=== PATIENT | female | born 1955 | race Caucasian/White ===

== ENCOUNTER → 2025-01-01 | Outpatient (CLI) | payer MEDICARE, MEDICAID, SELFPAY ==
--- NOTE | 2025-01-01 13:52 | XR_ITS ---
Examination: Lumbar spine, 5 views Technique: Lumbar spine AP, lateral, coned lateral lower lumbar spine, bilateral obliques 5 views Exam date and time: January 01, 2025 1417 hrs. Indications: Low back pain beginning one year ago. Findings: Grade 1 anterolisthesis L3 on L4, L4 on L5 Mild to moderate lumbar disc narrowing No lumbar fracture No lumbar spondylosis Impression: [id number] lumbar degenerative disc disease
== END | disposition home or self-care (01) ==
LOC: CDIM 13:42
PROVIDERS: PCP Nurse Practitioner Family; Referring Provider Chiropractor; Visit Provider Chiropractor
DX: M51.369 Other intervertebral disc degeneration, lumbar region without mention of lumbar back pain or lower extremity pain (principal)
CPT/HCPCS: 72110

== ENCOUNTER → 2025-01-12 | Outpatient (CLI) | payer MEDICARE, MEDICAID, SELFPAY ==
--- NOTE | 2025-01-12 | XR_ITS ---
Examination: Lumbar spine 3 views AP, standing lateral flexion standing lateral extension total 3 views Exam date and time: January 12, 2025 1159 hours INDICATIONS: Low back pain several years. FINDINGS: Grade 1 anterolisthesis L3 on L4, 9.7 mm in flexion and 7 mm in extension No lumbar fracture No cortical bone destruction Diffuse [id number] lumbar disc narrowing most prominent at the lower 3 lumbar levels IMPRESSION: Grade 1 anterolisthesis L3 on L4, 9.7 mm in flexion and 7 mm in extension Degenerative disc disease as above
== END | disposition home or self-care (01) ==
PROVIDERS: PCP Chiropractor; Referring Provider Chiropractor; Visit Provider Chiropractor
DX: M51.369 Other intervertebral disc degeneration, lumbar region without mention of lumbar back pain or lower extremity pain (principal)
CPT/HCPCS: 72120

== ENCOUNTER → 2025-05-14 | Outpatient (CLI) | payer MEDICARE, MEDICAID, SELFPAY ==
--- NOTE | 2025-05-14 14:37 | XR_ITS ---
Examination: Lumbar spine, 5 views Technique: Lumbar spine AP, lateral, coned lateral lower lumbar spine, bilateral obliques 5 views Exam date and time: May 14, 2000 2516 3 9 hours INDICATIONS: Low back pain beginning one week. FINDINGS: Grade 1 anterolisthesis L3 on L4 7 mm and L4 on L5 5 mm Diffuse mild to moderate lumbar disc narrowing No lumbar fracture Moderate lumbar spondylosis IMPRESSION: Diffuse [id number] lumbar degenerative disc disease
== END | disposition home or self-care (01) ==
LOC: CDIM 13:56
PROVIDERS: PCP Nurse Practitioner Family; Referring Provider Chiropractor; Visit Provider Chiropractor
DX: M51.360 Other intervertebral disc degeneration, lumbar region with discogenic back pain only (principal)
CPT/HCPCS: 72110

== ENCOUNTER → 2025-08-05 | Outpatient (CLI) | payer MEDICARE, MEDICAID, SELFPAY ==
--- NOTE | 2025-08-05 12:00 | XR_ITS ---
Examination: MRI lumbar spine without contrast Date and time of exam: August 05, 2025, 1233 hours INDICATIONS: Low back pain radiating down the right leg 6 months Technique: Multiple MRI axial and sagittal sections lumbar spine. Sagittal T2-weighted images, TR 3500, TE 118 T1 weighted transverse sections, TR 688 T8.5, T2-weighted sagittal sections T1 weighted sagittal sections TR 621, TE 30 T2 axial sections, TR 4, 190, TE 84. Findings: Grade 1 anterolisthesis L3 on L4 Abnormal heterogeneous marrow signal involving all visualized osseous structures Diffuse lumbar disc desiccation Mild disc narrowing L3-L4 L5-S1 no disc protrusion L4-L5 2 mm left foraminal disc bulge L3-L4 moderate overall spinal stenosis, axial image 7, thickening of ligamentum flavum and facet arthropathy circumferentially narrowing the thecal sac with mild left L3 ganglionic compression L2-L3 no disc protrusion L1-2 no disc protrusion IMPRESSION: L4-L5 2 mm left foraminal disc bulge L3-L4 moderate overall spinal stenosis as above, including mild left L3 ganglionic compression
== END | disposition home or self-care (01) ==
LOC: SMRI 11:56
PROVIDERS: PCP Nurse Practitioner Family; Referring Provider Nurse Practitioner Family; Visit Provider Nurse Practitioner Family
DX: M51.360 Other intervertebral disc degeneration, lumbar region with discogenic back pain only (principal); G95.20 Unspecified cord compression
CPT/HCPCS: 72148